=== PATIENT | female | born 1950 | race Caucasian/White ===

== ENCOUNTER → 2022-08-01 16:53 | Outpatient (CLI) | payer MEDICARE, OTHER, SELFPAY | PROVIDERS: PCP Physician Assistant Medical; Referring Provider Internal Medicine; Visit Provider Internal Medicine | DX: Z23 Encounter for immunization (principal) | CPT/HCPCS: 90471; 90662 ==

== ENCOUNTER → 2022-12-08 11:06 | Outpatient (CLI) | payer MEDICARE, OTHER, SELFPAY ==
--- NOTE | 2022-12-08 | DI.CT.S_ITS ---
PROCEDURE: CT CHEST WO CON INDICATIONS: Diaphragmatic hernia without obstruction TECHNIQUE: Noncontrast 5 mm thick sections acquired from the pulmonary apices to the posterior costophrenic angles. 1 mm lung window, 5 mm thick coronal and sagittal and 7 mm axial MIP reformats were then acquired. For radiation dose reduction, the following was used: automated exposure control, adjustment of mA and/or kV according to patient size. COMPARISON: None. FINDINGS: Image quality: Excellent. Lungs and pleura: Platelike atelectasis or scarring noted in the right lower lobe. No pulmonary nodule Mediastinum: Large hiatal hernia contains the entire stomach no evidence of obstruction. Heart size normal. No adenopathy. Bones and chest wall: No suspicious bony lesions. No vertebral body compression fractures. No axillary or supraclavicular adenopathy by size criteria. Thyroid gland unremarkable. Abdomen: Visualized upper abdominal solid organs and bowel loops appear normal in the absence of contrast. IMPRESSION: Large hiatal hernia containing the entire stomach. No obstruction. Approved by: Enrique Saavedra M.D. on 12/08/2022 at 18:05
== END ==
PROVIDERS: PCP Family Medicine; Referring Provider Family Medicine; Visit Provider Family Medicine
DX: K44.9 Diaphragmatic hernia without obstruction or gangrene (principal)
CPT/HCPCS: 71250

== ENCOUNTER → 2023-01-04 10:46 | Outpatient (CLI) | payer MEDICARE, OTHER, SELFPAY ==
--- NOTE | 2023-01-04 10:49 | DI.RAD.S_ITS ---
PROCEDURE: FL BARIUM SWALLOW INDICATIONS: Diaphragmatic hernia without obstruction or gangre COMPARISON: [facility], CT, CT CHEST WO CON, 12/08/2022, 11:13. FINDINGS: Function: The esophagus is mildly torturous. Esophageal peristalsis is within normal limits. No tertiary esophageal contractions demonstrated. There is normal transit of a calibrated barium tablet through the esophagus into the stomach. Morphology: Large hiatal hernia. Air-contrast images demonstrate normal mucosal morphology. Single contrast views show no esophageal strictures, extrinsic mass effects, or diverticula. Rapid transit of contrast into the proximal jejunum. There is spontaneous gastroesophageal reflux. Reflux with provocative maneuvers reaches the level of the upper esophagus. Kyphoscoliosis. IMPRESSION: Large hiatal hernia. Gastroesophageal reflux to the level of the upper esophagus. Dictated by: Atilio Reid M.D. on 01/04/2023 at 14:04 Approved by: Atilio Reid M.D. on 01/04/2023 at 14:26
== END ==
PROVIDERS: PCP Family Medicine; Referring Provider Surgery; Visit Provider Surgery
DX: K44.9 Diaphragmatic hernia without obstruction or gangrene (principal); K21.9 Gastro-esophageal reflux disease without esophagitis
CPT/HCPCS: 74220

== ENCOUNTER 2023-01-31 13:37 | Day surgery (SDC) | payer MEDICARE, OTHER, SELFPAY ==
[2023-01-31] VITALS (7 sets, daily range): BP systolic 111–136; BP diastolic 71–87; PULSE 70–88; RESP 12–25; TEMP 36.2–36.4; O2SAT 95–99; BMI 23.9
--- NOTE | 2023-01-31 | PATH_ITS ---
[facility] Accession Number: [id number] No. of containers..01 Tissue . 01 Material submitted: . esophagus, E-G Junction - GE JUNCTION BIOPSY . 01 Diagnosis: Gastroesophageal Junction, Biopsy: Squamous epithelium with no diagnostic abnormality. Intraepithelial eosinophils are not increased. Negative for dysplasia and malignancy. MRV 02/06/2023 1530 Local . 01 Electronically signed: . Geeta Giraldo MD, Pathologist NPI- [id number] . 01 Gross description: . GE JUNCTION BIOPSY: Received in formalin are 2 fragment(s) of plasencia, soft tissue measuring 0.3 x 0.1 x 0.1 cm to 0.2 x 0.1 x 0.1 cm submitted entirely in 1 cassette(s) /CPE 02/02/2023 0629 Local . 01 Pathologist provided ICD-10: K44.9 . 01 CPT . 063663 Specimen Comment: A courtesy copy of this report has been sent to [phone] Performed at: 01 [facility] [address] [place] [id number] MD Samson Coley MD Phone: [phone]
[2023-01-31] MEDS: LACTATED RINGERS 1,000 ML 200 ML IV (14:38)
--- NOTE | 2023-01-31 15:00 | PM.HP.1 ---
History of Present Illness History of Present Illness Date Patient Seen: 01/31/23 Time Patient Seen: 15:00 Chief complaint: SDC Narrative: 72-year-old woman with a known paraesophageal hernia here for esophagoduodenoscopy for preoperative evaluation. Please refer to the H and P from December 2022 for further detail. No interval changes in health. [facility] Medical History Depressive disorder History of colon polyps Iron deficiency anemia Surgical History History of knee replacement procedure of left knee History of knee replacement procedure of right knee Social History household members: friend(s) Smoking Status: Never smoker alcohol intake: never Meds Home Medications and Allergies Home Medications Medication Instructions Recorded Confirmed Type lisinopril 20 mg tablet 10 mg PO DAILY 12/15/22 01/31/23 History melatonin 5 mg tablet 5 mg PO BEDTIME PRN Sleep 01/31/23 01/31/23 History Allergies Allergy/AdvReac Type Severity Reaction Status Date / Time No Known Drug Allergies Allergy Verified 01/31/23 14:09 Exam Vital Signs (past 8 hours): - 01/31/23 14:33 Temperature 97.5 F L Pulse Rate 85 Respiratory Rate 17 Blood Pressure 136/87 Pulse Oximetry 97 Oxygen Delivery Method Room Air Oxygen Delivery Method Room Air Narrative Exam Narrative: General adult woman alert oriented no acute distress Assessment & Plan Assessment & Plan narrative: 72-year-old woman with a large paraesophageal hernia here for preoperative esophagoduodenoscopy. Overview of the procedure was discussed patient again at the bedside. Procedural risks including but not limited to hemorrhage, missed diagnosis, intestinal injury were discussed. Questions have been answered and she provides her verbal and written consent to proceed.
--- NOTE | 2023-01-31 15:32 | PM.OP.EGD ---
Operative Date/Time/Diagnoses Date of procedure: 01/31/23 Time of procedure: 15:32 Pre-op diagnosis: Hiatal hernia Post-op diagnosis: other (Paraesophageal hernia) Procedure & Clinicians Study performed: Esophagoduodenoscopy Same procedure as scheduled: Yes Indications: Preoperative evaluation hiatal hernia Surgeon: Edwin Sawant Procedure Notes Procedure in detail: The history and physical was performed/updated and the patient is ASA class is 2. The procedure was discussed in detail with the patient. Potential risks complications including infection, bleeding, missed diagnosis, perforation, need for surgery, and were explained. Their questions were answered and informed consent was obtained. Patient was placed supine on the stretcher.. Time out was performed. Procedural sedation was administered by Anesthesia. A bite block was placed. the scope was inserted into the mouth and advanced through the esophagus and into the stomach. The stomach was without masses, ulcers or gastritis. The pylorus was intubated and the duodenum was normal to the 2nd portion. The scope was retroflexed within the stomach and there was a very large paraesophageal hernia.. The scope was withdrawn into the esophagus the Z line was seen at 30 cm from the incisions. Biopsy of the GE junction was performed with forceps. There was no Baugh's esophagitis, esophageal masses or strictures. Stomach was desufflated and scope removed. The patient tolerated the procedure well and will be discharged when they meet criteria. Specimen(s): other (GE junction) Impression: Large paraesophageal hernia Post-procedure Plan for aftercare: We will contact with biopsy results and for further discussion of hiatal hernia management Disposition: same day surgery
== END 2023-01-31 16:10 | disposition home or self-care (01) ==
PROVIDERS: PCP Family Medicine; Referring Provider Surgery; Visit Provider Surgery
PROC: 0DJ08ZZ Inspection of Upper Intestinal Tract, Via Natural or Artificial Opening Endoscopic (ICD-10-PCS; CPT 43235; principal; 2023-01-31 14:45)
DX: K44.9 Diaphragmatic hernia without obstruction or gangrene (principal)
CPT/HCPCS: 43239; J2704

== ENCOUNTER → 2023-07-21 02:11 | Outpatient (CLI) | payer MEDICARE, OTHER, SELFPAY | PROVIDERS: PCP Family Medicine; Referring Provider Family Medicine; Visit Provider Family Medicine | DX: Z23 Encounter for immunization (principal) | CPT/HCPCS: 90471; 90662 ==